=== PATIENT | female | born 1945 | race Caucasian/White ===

== ENCOUNTER 2017-05-24 14:39 | Emergency (ER) | payer MEDICARE, OTHER ==
[2017-05-24 15:08] LABS: Glucose,Whole Blood 84 mg/dL (75-99)
--- NOTE | 2017-05-24 15:23 | ED ---
General Adult HPI - General Chief complaint: Altered Mental Status Stated complaint: ALTERED MENTAL STATUS Time Seen by Provider: 05/24/17 14:45 Source: patient, EMS, RN notes reviewed Mode of arrival: EMS Limitations: no limitations - History of Present Illness Initial comments: This is a 72-year-old female with past history significant for COPD and chronic schizophrenia. Patient comes in today because her pulse ox was becoming low and while in the primary medical care doctor's office they told to come emergency department. Patient was not complaining of any difficulty breathing or shortness of breath per patient was not complaining chest pain or palpitations. states he thinks it's occurring because the patient is breathing through her mouth and not using the oxygen her nose. Patient has not had any recent fever chills or cough. Patient denies headache patient denies numbness weakness. Patient denies any lightheadedness dizziness or near syncopal episode. Patient's states that she was given antibiotics recently for a urinary tract infection but according to the primary medical care doctor she still continues to have a urinary tract infection. Currently patient has no complaints whatsoever and states her pulse ox is been in the high 90s on 2 L in the emergency department. Patient is always on at least 2 L at home. - Related Data Home Medications Medication Instructions Recorded Confirmed Albuterol Sulfate [Proair Hfa] 1 - 2 puff INHALATION RT-QID PRN 02/27/15 Aspirin 325 mg PO DAILY 02/27/15 05/24/17 Budesonide [Pulmicort] 0.5 mg INHALATION RT-BID 02/27/15 05/24/17 Metoprolol Tartrate [Lopressor] 100 mg PO BID 02/27/15 05/24/17 Nortriptyline [Pamelor] 25 mg PO HS 02/27/15 05/24/17 Sertraline [Zoloft] 100 mg PO DAILY 02/27/15 05/24/17 Simvastatin [Zocor] 40 mg PO HS 02/27/15 05/24/17 cloNIDine HCL [Catapres] 0.3 mg PO BID 02/27/15 05/24/17 Albuterol Nebulized [Ventolin 2.5 mg INHALATION RT-BID 05/24/17 05/24/17 Nebulized] Levofloxacin [Levaquin] 500 mg PO DAILY 05/24/17 05/24/17 QUEtiapine FUMARATE [SEROquel XR] 100 mg PO HS 05/24/17 05/24/17 clonazePAM [KlonoPIN] 1 mg PO Q6H PRN 05/24/17 05/24/17 Allergies Allergy/AdvReac Type Severity Reaction Status Date / Time fentanyl [From Duragesic] Allergy BP Verified 05/24/17 15:17 DECREASES Review of Systems ROS Statement: Those systems with pertinent positive or pertinent negative responses have been documented in the HPI. ROS Other: All systems not noted in ROS Statement are negative. Past Medical History Past Medical History: COPD, CVA/TIA, Hypertension, Myocardial Infarction ([place]) History of Any Multi-Drug Resistant Organisms: None Reported Past Psychological History: Anxiety, Depression, Schizophrenia Smoking Status: Former smoker Past Alcohol Use History: None Reported Past Drug Use History: None Reported General Exam - General Exam Comments Initial Comments: GENERAL: Patient is well-developed and well-nourished. Patient is nontoxic and well- hydrated and is in no acute distress. ENT: Neck is soft and supple. No significant lymphadenopathy is noted. Oropharynx is clear. Moist mucous membranes. Neck has full range of motion without eliciting any pain. EYES: The sclera were anicteric and conjunctiva were pink and moist. Extraocular movements were intact and pupils were equal round and reactive to light. Eyelids were unremarkable. PULMONARY: Unlabored respirations. Good breath sounds bilaterally. No audible rales rhonchi or wheezing was noted. CARDIOVASCULAR: There is a regular rate and rhythm without any murmurs gallops or rubs. ABDOMEN: Soft and nontender with normal bowel sounds. No palpable organomegaly was noted. There is no palpable pulsatile mass. SKIN: Skin is clear with no lesions or rashes and otherwise unremarkable. NEUROLOGIC: Patient is alert and oriented x3. Cranial nerves II through XII are grossly intact. Motor and sensory are also intact. Normal speech, volume and content. Symmetrical smile. MUSCULOSKELETAL: Normal extremities with adequate strength and full range of motion. No lower extremity swelling or edema. No calf tenderness. LYMPHATICS: No significant lymphadenopathy is noted PSYCHIATRIC: Normal psychiatric evaluation. Limitations: no limitations Course Vital Signs 05/24/17 05/24/17 05/24/17 14:41 15:52 15:57 Temperature 98.2 F Pulse Rate 85 81 Respiratory 20 18 Rate Blood Pressure 217/91 201/89 205/95 O2 Sat by Pulse 95 96 Oximetry 05/24/17 16:05 Temperature Pulse Rate 86 Respiratory 18 Rate Blood Pressure 184/81 O2 Sat by Pulse 96 Oximetry Medical Decision Making - Medical Decision Making EKG shows normal sinus rhythm at 85 bpm DE interval is 128 QRS is 60 QT interval 364 QTC is 433. Patient's EKG shows no ST segment elevation or depression or T wave abnormalities are noted. Chest x-ray shows no acute abnormality. Patient remained asymptomatic throughout her ED course it was 2 L of oxygen remained in the high 90s on her pulse ox. - Lab Data Result diagrams: 05/24/17 15:00 05/24/17 15:00 Lab Results 05/24/17 05/24/17 05/24/17 Range/Units 15:00 15:00 15:00 WBC 7.7 (3.8-10.6) k/uL RBC 4.04 (3.80-5.40) m/uL Hgb 12.7 (11.4-16.0) gm/dL Hct 39.3 (34.0-46.0) % MCV 97.3 (80.0-100.0) fL MCH 31.5 (25.0-35.0) pg MCHC 32.3 (31.0-37.0) g/dL RDW 12.6 (11.5-15.5) % Plt Count 173 (150-450) k/uL Neutrophils % 62 % Lymphocytes % 25 % Monocytes % 6 % Eosinophils % 3 % Basophils % 0 % Neutrophils # 4.8 (1.3-7.7) k/uL Lymphocytes # 1.9 (1.0-4.8) k/uL Monocytes # 0.4 (0-1.0) k/uL Eosinophils # 0.2 (0-0.7) k/uL Basophils # 0.0 (0-0.2) k/uL Hypochromasia Slight PT (9.0-12.0) sec INR (<1.1) APTT (22.0-30.0) sec Sodium 142 (137-145) mmol/L Potassium 4.3 (3.5-5.1) mmol/L Chloride 95 L (98-107) mmol/L Carbon Dioxide 39 H (22-30) mmol/L Anion Gap 8 mmol/L BUN 12 (7-17) mg/dL Creatinine 0.60 (0.52-1.04) mg/dL Est GFR (MDRD) Af Amer >60 (>60 ml/min/1.73 sqM) Est GFR (MDRD) Non-Af >60 (>60 ml/min/1.73 sqM) Glucose 76 (74-99) mg/dL POC Glucose (mg/dL) (75-99) mg/dL POC Glu [employer] ID Calcium 9.3 (8.4-10.2) mg/dL Total Bilirubin 0.3 (0.2-1.3) mg/dL AST 40 H (14-36) U/L ALT 39 (9-52) U/L Alkaline Phosphatase 136 H (38-126) U/L Total Creatine Kinase <20 L (30-135) U/L CK-MB (CK-2) 0.6 (0.0-2.4) ng/mL CK-MB (CK-2) Rel Index 0.0 Troponin I <0.012 (0.000-0.034) ng/mL Total Protein 7.3 (6.3-8.2) g/dL Albumin 3.8 (3.5-5.0) g/dL Urine Color Urine Appearance (Clear) Urine pH (5.0-8.0) Ur Specific Morris (1.001-1.035) Urine Protein (Negative) Urine Glucose (UA) (Negative) Urine Ketones (Negative) Urine Blood (Negative) Urine Nitrite (Negative) Urine Bilirubin (Negative) Urine Urobilinogen (<2.0) mg/dL Ur Leukocyte Esterase (Negative) Urine RBC (0-5) /hpf Urine WBC (0-5) /hpf Ur Squamous Epith Cells (0-4) /hpf Urine Bacteria (None) /hpf Hyaline Casts (0-2) /lpf Urine Mucus (None) /hpf 05/24/17 05/24/17 05/24/17 Range/Units 15:00 15:05 15:58 WBC (3.8-10.6) k/uL RBC (3.80-5.40) m/uL Hgb (11.4-16.0) gm/dL Hct (34.0-46.0) % MCV (80.0-100.0) fL MCH (25.0-35.0) pg MCHC (31.0-37.0) g/dL RDW (11.5-15.5) % Plt Count (150-450) k/uL Neutrophils % % Lymphocytes % % Monocytes % % Eosinophils % % Basophils % % Neutrophils # (1.3-7.7) k/uL Lymphocytes # (1.0-4.8) k/uL Monocytes # (0-1.0) k/uL Eosinophils # (0-0.7) k/uL Basophils # (0-0.2) k/uL Hypochromasia PT 11.5 (9.0-12.0) sec INR 1.2 (<1.1) APTT 24.5 (22.0-30.0) sec Sodium (137-145) mmol/L Potassium (3.5-5.1) mmol/L Chloride (98-107) mmol/L Carbon Dioxide (22-30) mmol/L Anion Gap mmol/L BUN (7-17) mg/dL Creatinine (0.52-1.04) mg/dL Est GFR (MDRD) Af Amer (>60 ml/min/1.73 sqM) Est GFR (MDRD) Non-Af (>60 ml/min/1.73 sqM) Glucose (74-99) mg/dL POC Glucose (mg/dL) 84 (75-99) mg/dL POC Glu [employer] ID Erica Rosales Calcium (8.4-10.2) mg/dL Total Bilirubin (0.2-1.3) mg/dL AST (14-36) U/L ALT (9-52) U/L Alkaline Phosphatase (38-126) U/L Total Creatine Kinase (30-135) U/L CK-MB (CK-2) (0.0-2.4) ng/mL CK-MB (CK-2) Rel Index Troponin I (0.000-0.034) ng/mL Total Protein (6.3-8.2) g/dL Albumin (3.5-5.0) g/dL Urine Color Yellow Urine Appearance Cloudy H (Clear) Urine pH 6.5 (5.0-8.0) Ur Specific Morris 1.010 (1.001-1.035) Urine Protein Trace H (Negative) Urine Glucose (UA) Negative (Negative) Urine Ketones Negative (Negative) Urine Blood Negative (Negative) Urine Nitrite Negative (Negative) Urine Bilirubin Negative (Negative) Urine Urobilinogen <2.0 (<2.0) mg/dL Ur Leukocyte Esterase Large H (Negative) Urine RBC 2 (0-5) /hpf Urine WBC 7 H (0-5) /hpf Ur Squamous Epith Cells <1 (0-4) /hpf Urine Bacteria Occasional H (None) /hpf Hyaline Casts 1 (0-2) /lpf Urine Mucus Rare H (None) /hpf Disposition Clinical Impression: Abnormal pulse oximetry Disposition: HOME SELF-CARE Condition: Good Referrals: Elise Joseph MD [Primary Care Provider] - 1-2 days Time of Disposition: 17:14
[2017-05-24 15:35] LABS: Basophils % (A) 0 %; CH 30.2; CHCM 31.2; Eosinophils # (A) 0.2 k/uL (0-0.7); Eosinophils % (A) 3 %; HCT 39.3 % (34.0-46.0); HDW 2.71; HGB 12.7 gm/dL (11.4-16.0); Hypochromasia Slight; Luc # (Auto) 0.26; Luc % (Auto) 3; Lymphocytes # (A) 1.9 k/uL (1.0-4.8); Lymphocytes % (A) 25 %; MCH 31.5 pg (25.0-35.0); MCHC 32.3 g/dL (31.0-37.0); MCV 97.3 fL (80.0-100.0); Mean Platelet Volume 7.6; Monocytes # (A) 0.4 k/uL (0-1.0); Monocytes % (A) 6 %; Neutrophils # (A) 4.8 k/uL (1.3-7.7); Neutrophils % (A) 62 %; RBC 4.04 m/uL (3.80-5.40); RDW 12.6 % (11.5-15.5); WBC 7.7 k/uL (3.8-10.6); WBC (Perox) 7.91
[2017-05-24] MEDS ORDERED: hydrALAZINE HCL 20 MG/ML 1 ML VIAL IVP STA (15:35)
[2017-05-24 15:43] LABS: ALT 39 U/L (9-52); AST 40 U/L (14-36); Alkaline Phosphatase 136 U/L (38-126); Anion Gap 8 mmol/L; Blood Urea Nitrogen 12 mg/dL (7-17); Calcium 9.3 mg/dL (8.4-10.2); Carbon Dioxide 39 mmol/L (22-30); Chloride 95 mmol/L (98-107); Glucose 76 mg/dL (74-99); Non-African American GFR(MDRD) >60 (>60 ml/min/1.73 sqM); Potassium 4.3 mmol/L (3.5-5.1); Sodium 142 mmol/L (137-145); Total Bilirubin 0.3 mg/dL (0.2-1.3); Total Protein 7.3 g/dL (6.3-8.2)
--- NOTE | 2017-05-24 15:44 | XR ---
EXAMINATION TYPE: XR chest 2V DATE OF EXAM: 05/24/2017 HISTORY: difficulty breathing. REFERENCE: NONE. FINDINGS: The lungs are clear. Pleural spaces are clear. The heart is not enlarged. IMPRESSION: NO ACUTE INTRATHORACIC ABNORMALITY.
[2017-05-24 15:49] LABS: INR 1.2 (<1.1); Partial Thromboplastin Time 24.5 sec (22.0-30.0); Prothrombin Time 11.5 sec (9.0-12.0)
[2017-05-24 15:58] LABS: Creatine Kinase <20 U/L (30-135)
[2017-05-24 16:12] LABS: Creatine Kinase MB 0.6 ng/mL (0.0-2.4); Troponin I <0.012 ng/mL (0.000-0.034)
[2017-05-24 16:16] LABS: Appearance,Urine Cloudy (Clear); Bacteria,Urine Occasional /hpf; Bilirubin,Urine Negative (Negative); Glucose,Urine (UA) Negative (Negative); Ketones,Urine Negative (Negative); Leukocyte Esterase,Urine Large (Negative); Mucus,Urine Rare /hpf; Nitrite,Urine Negative (Negative); PH, Urine 6.5 (5.0-8.0); Particle Count 35669; Protein,Urine Trace (Negative); RBC,Urine 2 /hpf (0-5); Squamous Epithelial Cell,Urine <1 /hpf (0-4); UA Billing (MACRO vs. MICRO) MICRO; Urobilinogen,Urine <2.0 mg/dL (<2.0); WBC,Urine 7 /hpf (0-5)
[2017-05-24 17:22] VITALS: PULSE 90; RESP 15; TEMP 98.5
[2017-05-24 17:30] VITALS: BP 180/74
== END 2017-05-24 17:36 | disposition home or self-care (01) ==
LOC: EC 14:39
DX: R09.89 Other specified symptoms and signs involving the circulatory and respiratory systems (principal); J44.9 Chronic obstructive pulmonary disease, unspecified; I10 Essential (primary) hypertension; I25.2 Old myocardial infarction; F41.9 Anxiety disorder, unspecified; F20.9 Schizophrenia, unspecified; F32.9 Major depressive disorder, single episode, unspecified; Z87.891 Personal history of nicotine dependence; Z79.82 Long term (current) use of aspirin; Z79.51 Long term (current) use of inhaled steroids; Z79.899 Other long term (current) drug therapy; Z88.5 Allergy status to narcotic agent
CPT/HCPCS: 36415; 93005; 80053; 82550; 82553; 84484; 85025; 85610; 85730; 81001; 87086; 71020; 96374; 99285; J0360